=== PATIENT | male | born 1980 | race Caucasian/White ===

== ENCOUNTER 2022-12-04 08:18 | Emergency (ER) | payer OTHER, SELFPAY ==
[2022-12-04 08:41] VITALS: BP 128/70; PULSE 81; RESP 18; TEMP 37.2; O2SAT 97
--- NOTE | 2022-12-04 09:07 | ED.DENTAL ---
HPI - Dental/Oral General Chief complaint: Dental/Oral Stated complaint: Rt Side Mouth Pain Time Seen by Provider: 12/04/22 08:19 Source: patient Mode of arrival: ambulatory Limitations: no limitations History of Present Illness HPI Narrative: 42-year-old male presents to Express complaints of right lower tooth pain on off for the past year; patient reports the pain became worse 2 days ago. Patient reports that he had a cavity to that tooth and then broke the tooth approximately a year ago. Patient reports that he was scheduled for a extraction but had a panic attack prior to going into dentist office and was unable to have tooth extracted. Patient's denies fever, body aches, chills, nausea, vomiting or diarrhea MD Complaint: tooth pain Location: Tooth # (30) Onset (ago): day(s) (2) Exacerbating factors: chewing and cold Context: history of dental caries Treatment prior to arrival: oral analgesic Related Data Allergies Allergy/AdvReac Type Severity Reaction Status Date / Time No Known Allergies Allergy Mild Verified 06/08/10 16:29 Review of Systems Constitutional: Constitutional: Denies chills, Denies fatigue, Denies fever(s) and Denies weakness ENT: Denies dysphagia, Denies vertigo, Denies dizziness, Denies epistaxis and Denies nasal congestion Comments: Right lower tooth pain Respiratory: Respiratory: Denies cough, Denies dyspnea and Denies wheezing Gastrointestinal: Gastrointestinal: Denies diarrhea, Denies nausea and Denies vomiting Genitourinary: Genitourinary: Denies dysuria Integumentary/Breasts: Skin/Breast: Denies erythema and Denies rash Neurologic: Denies dizziness, Denies syncope and Denies headache(s) PMFSH Comments At time of signature, I agree with nursing past medical, surgical, social and family history. There is no relevant family history pertinent to the presenting complaint. Exam Const: General: healthy appearing and no acute distress Nutritional Appearance: well nourished Orientation/consciousness: patient oriented x3 Limitations: no limitations and No altered mental status HENMT: Head: normal to inspection Mouth: Yes Normal oral and palatal mucosa present, Yes lip normal and Yes moist mucous membranes Teeth and gingiva: abnormal tooth and associated gingiva (Broken tooth noted to right lower tooth number 30) lower left Other: Mild erythema noted surrounding tooth # 30; there is no obvious abscess noted. Eyes: Conjunctivae: conjunctivae normal Neck: Neck: normal visual inspection Resp: Effort & Inspection: normal respiratory effort and not labored Auscultation: clear to auscultation bilaterally, no crackles, no rales, no rhonchi and no wheezes Cardio: Rate: regular rate Rhythm: regular rhythm Heart sounds: no murmurs Back/Spine/Pelvis: Back: no CVA tenderness Skin: General skin exam: normal color Neuro: Speech: normal speech Gait exam (Neuro): Normal gait present Psych: Affect: normal affect Attitude: cooperative Course Course Level of Care: Express Care Visit Vital Signs Vital signs: Vital Signs Temperature 37.2 C 12/04/22 08:41 Pulse Rate 81 12/04/22 08:41 Respiratory Rate 18 12/04/22 08:41 Blood Pressure 128/70 12/04/22 08:41 Pulse Oximetry 97 12/04/22 08:41 Oxygen Delivery Room Air 12/04/22 08:41 Temperature 37.2 C 12/04/22 08:41 Pulse Rate 81 12/04/22 08:41 Respiratory Rate 18 12/04/22 08:41 Blood Pressure 128/70 12/04/22 08:41 Pulse Oximetry 97 12/04/22 08:41 Oxygen Delivery Room Air 12/04/22 08:41 MDM - Dental/Oral MDM Narrative Medical decision making narrative: Will prescribe antibiotic for patient. Also prescribed hydroxyzine that patient can take prior to dental appointment as he is requesting medication to help with anxiety. Encouraged patient to alternate Motrin and Tylenol incomplete warm salt water gargles as needed. Instructed patient to proceed to the emergency room if symptoms worsen Differe
== END 2022-12-04 09:26 | disposition home or self-care (01) ==
PROVIDERS: Emergency Provider Nurse Practitioner Family
DX: K02.9 Dental caries, unspecified (principal)
CPT/HCPCS: 99213; G0463